=== PATIENT | female | born 1980 | race Caucasian/White ===

== ENCOUNTER 2022-01-12 05:53 | Day surgery (SDC) | payer OTHER, SELFPAY ==
[~2022-01-12] VITALS: Ht 165.1 cm; Wt 77.1 kg
[2022-01-12] MEDS ORDERED: fentaNYL citrate 0.05 MG/ML VIAL ONE (07:33)
[2022-01-12] MEDS ORDERED: MIDAZOLAM 5 MG/5 ML VIAL ONE (07:33)
[2022-01-12] MEDS ORDERED: LIDOCAINE 2% 100 MG/5 ML UJET TP ONE (07:35)
[2022-01-12] MEDS ORDERED: MIDAZOLAM 2 MG/2 ML VIAL IVP ONE (13:45)
[2022-01-12] MEDS ORDERED: fentaNYL citrate 0.05 MG/ML VIAL IVP ONE (13:45)
[2022-01-12] MEDS ORDERED: MIDAZOLAM 2 MG/2 ML VIAL IVP SCH (14:00)
[2022-01-12] MEDS ORDERED: fentaNYL citrate 0.05 MG/ML VIAL IVP SCH (14:00)
== END 2022-01-12 09:00 | disposition home or self-care (01) ==
LOC: MMU 05:53 → MDS 05:53
PROVIDERS: ATTEND Internal Medicine Gastroenterology
DX: R19.7 Diarrhea, unspecified (principal); K21.9 Gastro-esophageal reflux disease without esophagitis; R11.11 Vomiting without nausea; E11.9 Type 2 diabetes mellitus without complications; E78.00 Pure hypercholesterolemia, unspecified; Z90.710 Acquired absence of both cervix and uterus; F17.210 Nicotine dependence, cigarettes, uncomplicated; Z79.84 Long term (current) use of oral hypoglycemic drugs; Z79.899 Other long term (current) drug therapy; Z20.822 Contact with and (suspected) exposure to COVID-19
CPT/HCPCS: 36415; 43239; 45380; 86677; 87426; J2250; J3010